=== PATIENT | female | born 1990 | race Caucasian/White ===

== ENCOUNTER 2017-05-11 17:55 | Inpatient (IN) | payer OTHER ==
[2017-05-11] MEDS ORDERED: Lactated Ringer's 1,000 ML IV STA (18:47)
--- NOTE | 2017-05-11 19:48 | ED PDOC ---
HPI:Nausea, Vomiting, Diarrhea Time Seen by Provider: 05/11/17 18:20 Chief Complaint (Nursing): Abdominal Pain Chief Complaint (Provider): Diarrhea History Per: Patient History/Exam Limitations: no limitations Onset/Duration Of Symptoms: Days (x3) Current Symptoms Are (Timing): Still Present Have you had recent travel within the past 21 days to any of the following countries: [place], [place], [place] or [place]?: No Associated Symptoms: Nausea, Diarrhea, Loss Of Appetite, Other (lightheadedness , body aches and headache). denies: Vomiting Additional Complaint(s): Susan Varela is a 26 year old female, with no significant past medical history, who presents to the emergency department complaining of diarrhea associated with nausea and decreased appetite onset for x3 days. Patient also reports feeling lightheaded, body aches and a headache. She reports x4 to x5 episodes per day of non bloody watery diarrhea. Patient thinks symptoms started after drinking a lemon soda that she's never had before, however she states other people have drank it and they are fine. She did not take medications for symptoms. She denies any vomiting, abdominal pain, sick contacts or recent travel. No further medical complaints. PMD: None provided. Past Medical History Reviewed: Historical Data, Nursing Documentation, Vital Signs Vital Signs: Last Vital Signs Temp 99.2 F 05/11/17 18:11 Pulse 92 H 05/11/17 18:11 Resp 16 05/11/17 18:11 BP 109/69 05/11/17 18:11 Pulse Ox 98 05/11/17 18:11 - Medical History PMH: No Chronic Diseases - Surgical History Surgical History: No Surg Hx - Family History Family History: States: No Known Family Hx - Social History Current smoker - smoking cessation education provided: No Alcohol: None Drugs: Denies - Home Medications Home Medications: Ambulatory Orders Medication Instructions Recorded Ibuprofen [Motrin Tab] 200 mg PO Q6 PRN #20 tab 03/31/15 - Allergies Allergies/Adverse Reactions: Allergies Allergy/AdvReac Type Severity Reaction Status Date / Time No Known Allergies Allergy Verified 03/31/15 10:00 Review of Systems ROS Statement: Except As Marked, All Systems Reviewed And Found Negative Constitutional: Positive for: Other (body aches) Cardiovascular: Positive for: Light Headedness Gastrointestinal: Positive for: Nausea, Diarrhea (watery), Other (decreased appetite). Negative for: Vomiting, Abdominal Pain Neurological: Positive for: Headache Physical Exam - Reviewed Nursing Documentation Reviewed: Yes Vital Signs Reviewed: Yes - Physical Exam Appears: Positive for: Non-toxic, No Acute Distress Head Exam: Positive for: ATRAUMATIC, NORMOCEPHALIC Skin: Positive for: Warm, Dry Eye Exam: Positive for: EOMI, PERRL ENT: Positive for: Pharynx Is (clear). Negative for: Pharyngeal Erythema, Tonsillar Exudate Neck: Positive for: Painless ROM, Supple Cardiovascular/Chest: Positive for: Regular Rate, Rhythm, Chest Non Tender. Negative for: Murmur Respiratory: Positive for: Normal Breath Sounds. Negative for: Wheezing Gastrointestinal/Abdominal: Positive for: Soft. Negative for: Tenderness Back: Positive for: Normal Inspection. Negative for: Decreased ROM Extremity: Positive for: Normal ROM. Negative for: Deformity Lymphatic: Negative for: Adenopathy Neurologic/Psych: Positive for: Alert. Negative for: Motor/Sensory Deficits - Laboratory Results Result Diagrams: 05/11/17 19:50 05/11/17 19:50 - ECG O2 Sat by Pulse Oximetry: 98 (RA) Pulse Ox Interpretation: Normal Medical Decision Making Medical Decision Making: Initial Impression: Diarrhea and light headedness. Differential includes but not limited to dehydration, infectious diarrhea, electrolyte abnormality, viral illness Initial Plan: --CMP --Lipase --Magnesium --Phosphorus --Urine --Urine dipstick --CBC w/ differential --Lactated Aid 1,000 ml IV 1,000 mls/hr --Toradol 15 mg IVP --Tylenol 325mg tab 975 mg PO --Influenza A B --Reevaluation 10 Initial labs unremarkable. However on reeval pt still having persistent muscle pain diffusely. Added on CPK and [place] 1030 Pt's CPK elevated. Will hospitalize for rhabdomyolysis. AIDA pt and Dr Caldwell. Scribe Attestation: Documented by Honorio Perkins, acting as a scribe for Jossy Bocanegra MD Provider Scribe Attestation: All medical record entries made by the Scribe were at my direction and personally dictated by me. I have reviewed the chart and agree that the record accurately reflects my personal performance of the history, physical exam, medical decision making, and the department course for this patient. I have also personally directed, reviewed, and agree with the discharge instructions and disposition. Disposition - Clinical Impression Clinical Impression: Rhabdomyolysis Counseled Patient/Family Regarding: Studies Performed, Diagnosis - Disposition Disposition Time: 22:30 Condition: FAIR Forms: [id number] (German) - Pt Status Changed To: Hospital Disposition Of: Observation - POA Present On Arrival: None
[2017-05-11 20:09] LABS: BASO % 0.4 % (0.0-2.0); EOS # 0.6 K/uL (0.0-0.7); EOS % 10.7 % (0.0-4.0); HEMOGLOBIN 13.7 g/dL (12.0-16.0); LYMPH # 1.1 K/uL (1.0-4.3); LYMPH % 19.8 % (20.0-40.0); MEAN CORPUSCULAR HEMOGLOBIN 29.5 pg (27.0-31.0); MEAN CORPUSCULAR HGB CONC 34.3 g/dL (33.0-37.0); MEAN PLATELET VOLUME 7.3 fl (7.2-11.7); MONO # 0.3 K/uL (0.0-0.8); MONO % 4.7 % (0.0-10.0); NEUT # 3.7 K/uL (1.8-7.0); NEUT % 64.4 % (50.0-75.0); NRBC % 0.1 % (0.0-0.0); RBC 4.66 Mil/uL (3.80-5.20); WHITE BLOOD COUNT 5.8 K/uL (4.8-10.8)
[2017-05-11 20:19] LABS: ALB/GLOB RATIO 1.1 (1.0-2.1); ALBUMIN 4.2 g/dL (3.5-5.0); ALT/SGPT 46 U/L (9-52); AST/SGOT 70 U/L (14-36); BLOOD UREA NITROGEN 15 mg/dl (7-17); CALCIUM 9.3 mg/dL (8.4-10.2); GFR AFRICAN-AMERICAN > 60; GFR NON-AFRICAN AMERICAN > 60; LIPASE 29 U/L (23-300)
[2017-05-11] MEDS ORDERED: Sodium Chloride 0.9% 1,000 ML IV STA (22:27)
--- NOTE | 2017-05-11 22:35 | CP.PCM.HP ---
History of Present Illness - History of Present Illness History of Present Illness: PMD: None Chief Complaint: Generalized body aches The patient was seen and examined in the ED HPI: 26 years old female with hx of constipation, comes with 3 days hx of Pains to both upper extremities, below both knees and generalized about the body, all of which started after taking a laxative. She had loose stool which has ceased, frontal headaches, chills, pain to the eyes and nausea No vomits, dysuria nor urinary frequency. 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 absent: Chills, Fatigue, Fever, Lethargy - EENT Eyes: Requires Corrective Lenses. absent: Floaters, Photophobia, Sees Flashes Ears: absent: Decreased Hearing, Ear Discharge, Ear Pain, Tinnitus Nose/Mouth/Throat: absent: Epistaxis, Nasal Congestion, Sinus Pain, Sinus Pressure - Cardiovascular Cardiovascular: absent: Chest Pain, Dyspnea, Edema - Respiratory Respiratory: absent: Cough, Dyspnea, Wheezing, Stridor - Gastrointestinal Gastrointestinal: Constipation, Nausea. absent: Vomiting - Genitourinary Genitourinary: absent: Dysuria, Flank Pain, Hematuria, Urinary Frequency - Musculoskeletal Musculoskeletal: Myalgias. absent: Arthralgias, Back Pain - Integumentary Integumentary: absent: Pruritus, Rash, Skin Ulcer, Sores, Striae, Swelling - Neurological Neurological: Headaches. absent: Confusion, Focal Weakness, Weakness - Psychiatric Psychiatric: absent: Anxiety, Depression, Panic Attacks - Endocrine Endocrine: absent: Palpitations, Polydipsia, Polyphagia, Polyuria - Hematologic/Lymphatic Hematologic: absent: Easy Bleeding, Easy Bruising Past Patient History - Past Social History Smoking Status: Never Smoked Chewing Tobacco Use: No Cigar Use: No Alcohol: None Drugs: Denies Home Situation {Lives}: With Family - CARDIAC Hx Cardiac Disorders: No - PULMONARY Hx Respiratory Disorders: No - NEUROLOGICAL Hx Neurological Disorder: No - HEENT Hx HEENT Problems: No - RENAL Hx Chronic Kidney Disease: No - ENDOCRINE/METABOLIC Hx Endocrine Disorders: No - HEMATOLOGICAL/ONCOLOGICAL Hx Blood Disorders: No - INTEGUMENTARY Hx Dermatological Problems: No - MUSCULOSKELETAL/RHEUMATOLOGICAL Hx Musculoskeletal Disorders: No - GASTROINTESTINAL Hx Gastrointestinal Disorders: No - GENITOURINARY/GYNECOLOGICAL Hx Genitourinary Disorders: No - PSYCHIATRIC Hx Psychophysiologic Disorder: No Hx Substance Use: No - SURGICAL HISTORY Hx Surgeries: No - ANESTHESIA Hx Anesthesia: No Meds Allergies/Adverse Reactions: Allergies Allergy/AdvReac Type Severity Reaction Status Date / Time No Known Allergies Allergy Verified 03/31/15 10:00 Physical Exam - Constitutional Appears: No Acute Distress - Head Exam Head Exam: ATRAUMATIC, NORMAL INSPECTION, NORMOCEPHALIC - Eye Exam Eye Exam: EOMI, Normal appearance Pupil Exam: NORMAL ACCOMODATION, PERRL - ENT Exam ENT Exam: Mucous Membranes Moist, Normal Exam, Normal External Ear Exam, Normal Oropharynx - Neck Exam Neck exam: Positive for: Full Rom, Normal Inspection. Negative for: Lymphadenopathy, Tenderness - Respiratory Exam Respiratory Exam: Clear to Auscultation Bilateral. absent: Rales, Rhonchi, Wheezes - Cardiovascular Exam Cardiovascular Exam: REGULAR RHYTHM, RRR, +S1, +S2. absent: Gallop - GI/Abdominal Exam GI & Abdominal Exam: Normal Bowel Sounds, Soft. absent: Mass, Organomegaly, Tenderness - Rectal Exam Rectal Exam: Deferred - Extremities Exam Extremities exam: Positive for: full ROM, normal inspection. Negative for: calf tenderness, pedal edema - Back Exam Back exam: NORMAL INSPECTION. absent: CVA tenderness (L), CVA tenderness (R) - Neurological Exam Neurological exam: Alert, CN II-XII Intact, Oriented x3, Reflexes Normal - Psychiatric Exam Psychiatric exam: Normal Affect, Normal Mood - Skin Skin Exam: Dry, Intact, Normal Color Results - Vital Signs Recent Vital Signs: Last Vital Signs Temp 99.2 F 05/11/17 18:11 Pulse 92 H 05/11/17 18:11 Resp 16 05/11/17 18:11 BP 109/69 05/11/17 18:11 Pulse Ox 98 05/11/17 19:51 - Labs Result Diagrams: 05/11/17 19:50 05/11/17 19:50 Labs: Laboratory Results - last 24 hr 05/11/17 05/11/17 05/11/17 19:50 19:50 19:50 WBC 5.8 RBC 4.66 Hgb 13.7 Hct 40.1 MCV 86.0 MCH 29.5 MCHC 34.3 RDW 13.0 Plt Count 203 MPV 7.3 Neut % (Auto) 64.4 Lymph % (Auto) 19.8 L Mora % (Auto) 4.7 Eos % (Auto) 10.7 H Baso % (Auto) 0.4 Neut # (Auto) 3.7 Lymph # (Auto) 1.1 Mora # (Auto) 0.3 Eos # (Auto) 0.6 Baso # (Auto) 0.0 Sodium 138 Potassium 4.0 Chloride 101 Carbon Dioxide 24 Anion Gap 17 BUN 15 Creatinine 0.6 L Est GFR ( Amer) > 60 Est GFR (Non-Af Amer) > 60 Random Glucose 95 Calcium 9.3 Phosphorus 4.4 Magnesium 1.8 Total Bilirubin 0.3 AST 70 H ALT 46 Alkaline Phosphatase 81 Total Creatine Kinase Total Protein 8.1 Albumin 4.2 Globulin 3.8 Albumin/Globulin Ratio 1.1 Lipase 29 Influenza Typ A,B (EIA) Negative for flu a/b 05/11/17 19:50 WBC RBC Hgb Hct MCV MCH MCHC RDW Plt Count MPV Neut % (Auto) Lymph % (Auto) Mora % (Auto) Eos % (Auto) Baso % (Auto) Neut # (Auto) Lymph # (Auto) Mora # (Auto) Eos # (Auto) Baso # (Auto) Sodium Potassium Chloride Carbon Dioxide Anion Gap BUN Creatinine Est GFR ( Amer) Est GFR (Non-Af Amer) Random Glucose Calcium Phosphorus Magnesium Total Bilirubin AST ALT Alkaline Phosphatase Total Creatine Kinase 1384 H Total Protein Albumin Globulin Albumin/Globulin Ratio Lipase Influenza Typ A,B (EIA) Assessment & Plan - Assessment and Plan (Free Text) Assessment: #. Rhabdomyolisis Plan: 26 years old female with hx of constipation, comes with 3 days hx of Pains to both upper extremities, below both knees and generalized about the body , all of which started after taking a laxative. She had loose stool which has ceased, frontal headaches, chills, pain to the eyes and nausea No vomits, dysuria nor urinary frequency. #. Rhabdomyolisis etiology is unclear - IV fluids NS at 250Mls/Hr - Pain management with Acetaminophen - follow CPK - follow Renal labs - Date & Time Date: 05/11/17 Time: 22:35
[2017-05-11 23:21] LABS: SQUAMOUS EPITHIAL 3 /hpf (0-5); URINE BACTERIA RARE (<OCC); URINE BILIRUBIN NEGATIVE (NEGATIVE); URINE BLOOD NEGATIVE (NEGATIVE); URINE CLARITY SLIGHTY-CLOUDY (Clear); URINE COLOR YELLOW (YELLOW); URINE GLUCOSE (UA) NEG (Normal); URINE LEUKOCYTE ESTERASE NEG Leu/uL (Negative); URINE PROTEIN NEGATIVE (NEGATIVE); URINE UROBILINOGEN 0.2-1.0 mg/dL (0.2-1.0)
[2017-05-11] MEDS ORDERED: Sodium Chloride 0.9% 1,000 ML IV SCH (23:30)
[2017-05-11 23:37] LABS: BARBITURATES, UR NEGATIVE (NEGATIVE); BENZODIAZEPINES, UR NEGATIVE (NEGATIVE); OPIATES, UR NEGATIVE (NEGATIVE); PHENCYCLIDINE, UR NEGATIVE (NEGATIVE)
[2017-05-12] MEDS: Sodium Chloride 0.9% 1,000 ML IV SCH ×7 (00:45→20:52)
[2017-05-12] MEDS: Dextrose 5%/Lactated Ringer's 1,000 ML IV SCH (00:50)
[2017-05-12 07:42] LABS: BLOOD UREA NITROGEN 13 mg/dl (7-17); GFR AFRICAN-AMERICAN > 60; GFR NON-AFRICAN AMERICAN > 60
[2017-05-12] MEDS ORDERED: Influenza Vaccine 18yr & older 0.5 ML/45 MCG SYR IM ONE (09:00)
--- NOTE | 2017-05-12 09:32 | CP.PCM.PN ---
Subjective - Date & Time of Evaluation Date of Evaluation: 05/12/17 Time of Evaluation: 09:30 - Subjective Subjective: pt states she feels the same as yesterday continues to have mild soreness in arms and legs hd stable nad CK still over 1k Objective - Vital Signs/Intake and Output Vital Signs (last 24 hours): Temp Pulse Resp BP Pulse Ox 97.2 F L 62 19 92/54 L 96 05/12/17 00:50 05/12/17 00:50 05/12/17 00:50 05/12/17 00:50 05/12/17 00:50 - Medications Medications: Current Medications Acetaminophen (Tylenol 325mg Tab) 650 mg PO Q6 PRN PRN Reason: Pain, moderate (4-7) Dextrose/Lactated Ringer's (Dextrose 5%/Lactated Ringer's) 1,000 mls @ 100 mls/ hr IV .Q10H [facility] Last Admin: 05/12/17 00:50 Dose: 100 mls/hr Sodium Chloride (Sodium Chloride 0.9%) 1,000 mls @ 250 mls/hr IV .Q4H [facility] Stop: 05/12/17 23:16 Last Admin: 05/12/17 09:26 Dose: 250 mls/hr - Labs Labs: 05/11/17 19:50 05/12/17 05:05 - Constitutional Appears: Non-toxic, No Acute Distress - Head Exam Head Exam: ATRAUMATIC, NORMOCEPHALIC - Eye Exam Eye Exam: EOMI, Normal appearance, PERRL - ENT Exam ENT Exam: Mucous Membranes Moist, Normal Oropharynx - Neck Exam Neck Exam: Full ROM, Normal Inspection - Respiratory Exam Respiratory Exam: Clear to Ausculation Bilateral, NORMAL BREATHING PATTERN - GI/Abdominal Exam GI & Abdominal Exam: Soft, Normal Bowel Sounds - Back Exam Back Exam: absent: CVA tenderness (L), CVA tenderness (R) - Neurological Exam Neurological Exam: Alert, Awake - Psychiatric Exam Psychiatric exam: Normal Affect, Normal Mood - Skin Skin Exam: Dry, Warm Assessment and Plan - Assessment and Plan (Free Text) Plan: 26 years old female with hx of constipation, comes with 3 days hx of Pains to both upper extremities, below both knees and generalized about the body , all of which started after taking a laxative. She had loose stool which has ceased, frontal headaches, chills, pain to the eyes and nausea No vomits, dysuria nor urinary frequency. Rhabdomyolysis - unknown etiology - IV fluids NS at 250Mls/Hr - Pain management with Acetaminophen - follow CPK, trending down - follow Renal labs
[2017-05-13] MEDS: Dextrose 5%/Lactated Ringer's 1,000 ML IV SCH (04:00)
[2017-05-13] MEDS ORDERED: Lactated Ringer's 1,000 ML IV SCH (05:30)
--- NOTE | 2017-05-13 07:57 | CP.PCM.PN ---
Subjective - Date & Time of Evaluation Date of Evaluation: 05/13/17 Time of Evaluation: 07:56 - Subjective Subjective: pt feeling well, however CK increased today increased IVF to 250 cc/hr HD STABLE nad Objective - Vital Signs/Intake and Output Vital Signs (last 24 hours): Temp Pulse Resp BP Pulse Ox 99.6 F 80 18 103/61 98 05/13/17 00:15 05/13/17 00:15 05/13/17 00:15 05/13/17 00:15 05/13/17 00:15 - Medications Medications: Current Medications Acetaminophen (Tylenol 325mg Tab) 650 mg PO Q6 PRN PRN Reason: Pain, moderate (4-7) Dextrose/Lactated Ringer's (Dextrose 5%/Lactated Ringer's) 1,000 mls @ 100 mls/ hr IV .Q10H [facility] Last Admin: 05/13/17 04:00 Dose: Not Given Lactated Ringer's (Lactated Ringer's) 1,000 mls @ 250 mls/hr IV .Q4H [facility] Stop: 05/13/17 15:53 - Labs Labs: 05/11/17 19:50 05/12/17 05:05 - Constitutional Appears: Non-toxic, No Acute Distress - Head Exam Head Exam: ATRAUMATIC, NORMOCEPHALIC - Eye Exam Eye Exam: EOMI, Normal appearance, PERRL - ENT Exam ENT Exam: Mucous Membranes Moist, Normal Oropharynx - Neck Exam Neck Exam: Full ROM, Normal Inspection - Respiratory Exam Respiratory Exam: Clear to Ausculation Bilateral, NORMAL BREATHING PATTERN - Cardiovascular Exam Cardiovascular Exam: RRR, +S1, +S2 - GI/Abdominal Exam GI & Abdominal Exam: Soft, Normal Bowel Sounds - Extremities Exam Extremities Exam: Full ROM, Normal Capillary Refill - Back Exam Back Exam: absent: CVA tenderness (L), CVA tenderness (R) - Neurological Exam Neurological Exam: Alert, Awake - Psychiatric Exam Psychiatric exam: Normal Affect, Normal Mood - Skin Skin Exam: Dry, Warm Assessment and Plan - Assessment and Plan (Free Text) Plan: 26 years old female with hx of constipation, comes with 3 days hx of Pains to both upper extremities, below both knees and generalized about the body , all of which started after taking a laxative. She had loose stool which has ceased, frontal headaches, chills, pain to the eyes and nausea No vomits, dysuria nor urinary frequency. Rhabdomyolysis - unknown etiology - IV fluids NS at 250Mls/Hr, increased from yesterday - Pain management with Acetaminophen - follow CPK, trending up today - follow Renal labs
[2017-05-13] MEDS: Lactated Ringer's 1,000 ML IV SCH ×3 (09:55→21:43)
[2017-05-13 23:43] VITALS: RESP 18; O2SAT 98
[2017-05-14] MEDS: Lactated Ringer's 1,000 ML IV SCH (06:27)
[2017-05-14 08:08] VITALS: BP 94/55; PULSE 57; TEMP 97.8
--- NOTE | 2017-05-14 14:01 | CP.PCM.DIS ---
Provider - Provider Date of Admission: 05/12/17 09:29 Attending physician: Bishop Caldwell Time Spent in preparation of Discharge (in minutes): 30 Hospital Course - Lab Results Lab Results: Most Recent Lab Values WBC 5.8 K/uL (4.8-10.8) 05/11/17 19:50 RBC 4.66 Mil/uL (3.80-5.20) 05/11/17 19:50 Hgb 13.7 g/dL (12.0-16.0) 05/11/17 19:50 Hct 40.1 % (34.0-47.0) 05/11/17 19:50 MCV 86.0 fl (81.0-99.0) 05/11/17 19:50 MCH 29.5 pg (27.0-31.0) 05/11/17 19:50 MCHC 34.3 g/dL (33.0-37.0) 05/11/17 19:50 RDW 13.0 % (11.5-14.5) 05/11/17 19:50 Plt Count 203 K/uL (130-400) 05/11/17 19:50 MPV 7.3 fl (7.2-11.7) 05/11/17 19:50 Neut % (Auto) 64.4 % (50.0-75.0) 05/11/17 19:50 Lymph % (Auto) 19.8 % (20.0-40.0) L 05/11/17 19:50 Mcminn % (Auto) 4.7 % (0.0-10.0) 05/11/17 19:50 Eos % (Auto) 10.7 % (0.0-4.0) H 05/11/17 19:50 Baso % (Auto) 0.4 % (0.0-2.0) 05/11/17 19:50 Neut # (Auto) 3.7 K/uL (1.8-7.0) 05/11/17 19:50 Lymph # (Auto) 1.1 K/uL (1.0-4.3) 05/11/17 19:50 Mcminn # (Auto) 0.3 K/uL (0.0-0.8) 05/11/17 19:50 Eos # (Auto) 0.6 K/uL (0.0-0.7) 05/11/17 19:50 Baso # (Auto) 0.0 K/uL (0.0-0.2) 05/11/17 19:50 ESR 32 mm/hr (0-20) H 05/11/17 23:25 Sodium 142 mmol/l (132-148) 05/12/17 05:05 Potassium 3.9 MMOL/L (3.6-5.0) 05/12/17 05:05 Chloride 107 mmol/L (98-107) 05/12/17 05:05 Carbon Dioxide 24 mmol/L (22-30) 05/12/17 05:05 Anion Gap 15 (10-20) 05/12/17 05:05 BUN 13 mg/dl (7-17) 05/12/17 05:05 Creatinine 0.6 mg/dl (0.7-1.2) L 05/12/17 05:05 Est GFR ( Amer) > 60 05/12/17 05:05 Est GFR (Non-Af Amer) > 60 05/12/17 05:05 Random Glucose 81 mg/dL (65-105) 05/12/17 05:05 Calcium 8.0 mg/dL (8.4-10.2) L 05/12/17 05:05 Phosphorus 4.4 mg/dl (2.5-4.5) 05/11/17 19:50 Magnesium 1.8 MG/DL (1.6-2.3) 05/11/17 19:50 Total Bilirubin 0.3 mg/dl (0.2-1.3) 05/11/17 19:50 AST 70 U/L (14-36) H 05/11/17 19:50 ALT 46 U/L (9-52) 05/11/17 19:50 Alkaline Phosphatase 81 U/L (38-126) 05/11/17 19:50 Total Creatine Kinase 989 U/L (30-135) H 05/14/17 06:00 Total Protein 8.1 G/DL (6.3-8.2) 05/11/17 19:50 Albumin 4.2 g/dL (3.5-5.0) 05/11/17 19:50 Globulin 3.8 gm/dL (2.2-3.9) 05/11/17 19:50 Albumin/Globulin Ratio 1.1 (1.0-2.1) 05/11/17 19:50 Lipase 29 U/L (23-300) 05/11/17 19:50 Urine Color Yellow (YELLOW) 05/11/17 23:09 Urine Clarity Slighty-cloudy (Clear) 05/11/17 23:09 Urine pH 5.0 (5.0-8.0) 05/11/17 23:09 Ur Specific [place] 1.024 (1.003-1.030) 05/11/17 23:09 Urine Protein Negative mg/dL (NEGATIVE) 05/11/17 23:09 Urine Glucose (UA) Neg mg/dL (Normal) 05/11/17 23:09 Urine Ketones Negative mg/dL (NEGATIVE) 05/11/17 23:09 Urine Blood Negative (NEGATIVE) 05/11/17 23:09 Urine Nitrate Negative (NEGATIVE) 05/11/17 23:09 Urine Bilirubin Negative (NEGATIVE) 05/11/17 23:09 Urine Urobilinogen 0.2-1.0 mg/dL (0.2-1.0) 05/11/17 23:09 Ur Leukocyte Esterase Neg Lyndsey/uL (Negative) 05/11/17 23:09 Urine RBC (Auto) 3 /hpf (0-3) 05/11/17 23:09 Urine Microscopic WBC 5 /hpf (0-5) 05/11/17 23:09 Ur Squamous Epith Cells 3 /hpf (0-5) 05/11/17 23:09 Urine Bacteria Rare (<OCC) 05/11/17 23:09 Urine Opiates Screen Negative (NEGATIVE) 05/11/17 23:09 Urine Methadone Screen Negative (NEGATIVE) 05/11/17 23:09 Ur Barbiturates Screen Negative (NEGATIVE) 05/11/17 23:09 Ur Phencyclidine Scrn Negative (NEGATIVE) 05/11/17 23:09 Ur Amphetamines Screen Negative (NEGATIVE) 05/11/17 23:09 U Benzodiazepines Scrn Negative (NEGATIVE) 05/11/17 23:09 U Oth Cocaine Metabols Negative (NEGATIVE) 05/11/17 23:09 U Cannabinoids Screen Negative (NEGATIVE) 05/11/17 23:09 Infectious Mcminn Assay Negative (NEGATIVE) 05/11/17 23:25 Influenza Typ A,B (EIA) Negative for flu a/b (NEGATIVE) 05/11/17 19:50 - Hospital Course Hospital Course: 26 years old female with hx of constipation, comes with 3 days hx of Pains to both upper extremities, below both knees and generalized about the body , all of which started after taking a laxative. She had loose stool which has ceased, frontal headaches, chills, pain to the eyes and nausea No vomits, dysuria nor urinary frequency. Rhabdomyolysis Patient was treated with aggressive IVF, CK level decreasing today and improving. Patient however states she would like to leave. Risks of leaving and benefits of staying explained, including but not limited to improvement and treatment of current condition, and risks of leaving being worsening of condition, permanent or temporary disability, or . Patient expressed understanding and stated she wanted to sign out AMA. Discharge Exam - Head Exam Additional comments: General: awake, alert HEENT: NCAT, PERRL, EOMI HEART: RRR, S1, S2 no MRG LUNG: CTAB, no WRR ABD: soft, NT, ND, no mass, no HSM EXT: warm, well perfused NEURO: awake, alert SKIN: warm, dry PSYCH: normal mood, normal affect Discharge Plan - Follow Up Plan Condition: FAIR Disposition: AGAINST MEDICAL ADVICE Instructions: Rhabdomyolysis (DC) Additional Instructions: follow up with primary MD 1 week DRINK PLENTY OF WATER. Referrals: [facility] [place] [Outside]
== END 2017-05-14 11:30 | disposition left against medical advice (07) | DRG 248 ==
LOC: H.ER 17:55 → H.ERHOLD 22:30 → H.MEDSURG1 05-12 00:45 → OBSVTOIN 05-12 09:29
PROVIDERS: ADMIT Internal Medicine; ATTEND Internal Medicine
PROC: 3E0234Z Introduction of Serum, Toxoid and Vaccine into Muscle, Percutaneous Approach (ICD-10-PCS; principal; 2017-05-12)
DX: M62.82 Rhabdomyolysis (principal); R19.7 Diarrhea, unspecified; Z23 Encounter for immunization